=== PATIENT | female | born 1975 | race Caucasian/White ===

== ENCOUNTER 2017-02-20 09:00 | Outpatient (CLI) | payer BC | END 2017-02-20 09:02 | LOC: OUT 09:00 | PROVIDERS: ATTEND General Practice | DX: N94.5 Secondary dysmenorrhea (principal); N92.6 Irregular menstruation, unspecified; N94.10 Unspecified dyspareunia | CPT/HCPCS: 99203 ==

== ENCOUNTER 2017-03-20 08:35 | Outpatient (CLI) | payer BC | END 2017-03-20 09:00 | LOC: OUT 08:35 | PROVIDERS: ATTEND General Practice | DX: N93.8 Other specified abnormal uterine and vaginal bleeding (principal); N94.5 Secondary dysmenorrhea; N94.10 Unspecified dyspareunia | CPT/HCPCS: 99214 ==

== ENCOUNTER 2017-03-23 16:26 | Emergency (ER) | payer BC ==
[2017-03-23] MEDS ORDERED: ONDANSETRON HCL/PF 4 MG/ 2ML VIAL IVP ONE (16:50)
[2017-03-23] MEDS ORDERED: 0.9 % SODIUM CHLORIDE 1,000 ML IV ONE (16:50)
[2017-03-23] MEDS ORDERED: DIPHENOXYLATE HCL/ATROPINE 1 EACH TABLET PO ONE (16:50)
[2017-03-23 17:13] LABS: BASOPHILS % 0.6 (0.0-1.5); EOSINOPHILS % 2.7 % (0.0-6.8); MEAN CORPUSCULAR HEMOGLOBIN 35.7 pg (28.0-34.0); NEUTROPHILS # 2.8 # k/uL (1.4-7.7)
[2017-03-23 17:26] LABS: eGFR (African) > 60; eGFR (Non-African) > 60
[2017-03-23] MEDS ORDERED: POTASSIUM CHLORIDE 20 MEQ TABLET.ER PO ONE (17:50)
--- NOTE | 2017-03-23 18:06 | ED Physician Documentation ---
Nausea/Vomiting/Diarrhea - HISTORIAN Historian: patient - HPI Stated Complaint: N/V/D Chief Complaint: Nausea,Vomiting,Diarrhea Onset: hours Duration: sudden-onset Timing: sudden onset Context: denies: out of country travel, bad food, recent trauma Severity: moderate Further Comments: no - Associated Symptoms Vomiting: frequent Diarrhea: copious Abdominal Pain: cramping (minimal) - ROS CONST: none CVS/RESP: denies: chest pain, shortness of breath, cough, dry cough, non- productive cough, productive cough, bloody cough GI/: none EYES/ENT: none MS/SKIN/LYMPH: denies: joint pain, leg swelling, rash, swollen glands, ankle swelling NEURO/PSYCH: none - PAST HX Past History: none Other History: other (alcoholism) Surgeries/Procedures: none Immunizations: referred to PCP Allergies/Adverse Reactions: Allergies Allergy/AdvReac Type Severity Reaction Status Date / Time aspirin Allergy Verified 03/23/17 16:37 Home Medications: Ambulatory Orders Medication Instructions Recorded NK [NK] 03/23/17 - SOCIAL HX Smoking History: cigarettes Alcohol Use: heavy Drug Use: none - FAMILY HX Family History: none - VITAL SIGNS Vital Signs: Vital Signs Temp Pulse Resp BP Pulse Ox 98.1 F 92 H 18 136/85 98 03/23/17 16:26 03/23/17 18:51 03/23/17 18:51 03/23/17 18:51 03/23/17 18:51 - REVIEWED ASSESSMENTS Nursing Assessment Reviewed: Yes Vitals Reviewed: Yes Progress - Results/Orders Results/Orders: cbc, cmp, ua, etoh ordered - Progress Progress: pt. gien 1 liter NS, 8 mg Zofran ivp and Lomotil 1 p[.o. x 1 in ER Critical Care Note - Critical Care Note Total Time (mins): 0 ED Results Lab/Radiology - Lab Results Lab Results: Lab Results 03/23/17 03/23/17 17:10 17:10 WBC 3.90 K/ul L K/ul (4.00-12.00) RBC 3.79 M/ul L M/ul (3.90-5.20) Hgb 13.5 g/dL g/dL (12.0-16.0) Hct 38.3 % % (34.5-46.5) MCV 101.0 fl H fl (80.0-100.0) MCH 35.7 pg H pg (28.0-34.0) MCHC 35.3 g/dL g/dL (30.0-36.0) RDW 12.9 % % (11.3-14.3) Plt Count 133 K/mm3 K/mm3 (130-400) Neut % (Auto) 71.7 % % (39.0-79.0) Lymph % (Auto) 16.4 % % (16.0-50.0) Shannon % (Auto) 7.0 % % (0.0-11.0) Eos % (Auto) 2.7 % % (0.0-6.8) Baso % (Auto) 0.6 (0.0-1.5) Neut # (Auto) 2.8 # k/uL # k/uL (1.4-7.7) Lymph # (Auto) 0.6 # k/uL # k/uL (0.6-4.0) Shannon # (Auto) 0.3 # k/uL # k/uL (0.0-0.9) Eos # (Auto) 0.1 # k/uL # k/uL (0.0-0.6) Baso # (Auto) 0.0 # k/uL # k/uL (0.0-0.5) Reactive Lymphs % 1.5 % % (0.0-5.0) Reactive Lymphs # 0.1 # k/uL # k/uL (0.0-0.8) Sodium 137 mmol/L mmol/L (136-145) Potassium 3.3 mmol/L L mmol/L (3.5-5.1) Chloride 95 mmol/L L mmol/L (98-107) Carbon Dioxide 23 mmol/L mmol/L (22-30) BUN 5 mg/dL L mg/dL (7-17) Creatinine 0.40 mg/dL L mg/dL (0.52-1.04) Estimated Creat Clear 197 Est GFR ( Amer) > 60 (60 - ) Est GFR (Non-Af Amer) > 60 (60 - ) Glucose 95 mg/dL mg/dL (74-106) Calcium 9.2 mg/dL mg/dL (8.4-10.2) Total Bilirubin 1.2 mg/dL mg/dL (0.2-1.3) AST 222 U/L H U/L (15-46) ALT 119 U/L H U/L (13-69) Alkaline Phosphatase 73 U/L U/L (38-126) Total Protein 8.3 g/dL H g/dL (6.3-8.2) Albumin 4.9 g/dL g/dL (3.5-5.0) Ethyl Alcohol 20.6 mg/dL H mg/dL (0.0-10.0) - Radiology Radiology Impressions: none ordered - Orders Orders: ED Orders Category Date Time Status Place IV Lock 1T Care 03/23/17 16:50 Active ALCOHOL MEDICAL USE ONLY Routine Lab 03/23/17 17:10 Completed CBC/PLATELET/DIFF Routine Lab 03/23/17 17:10 Completed CMP Routine Lab 03/23/17 17:10 Completed URINALYSIS Routine Lab 03/23/17 16:52 Ordered 0.9 % Sodium Chloride [Normal Saline] 1,000 ml Med 03/23/17 16:50 Discontinued IV Q1H Diphenoxylate HCl/Atropine [Lomotil] Med 03/23/17 16:50 Discontinued 1 each PO NOW ONE Ondansetron HCl/Pf [Zofran 4 mg/2 ml] Med 03/23/17 16:50 Discontinued 8 mg IVP NOW ONE Potassium Chloride [Klor-Con M20] Med 03/23/17 17:50 Discontinued 40 meq PO NOW ONE Nausea Physical Exam - EXAM General Appearance: alert, mild distress EENT: eye inspection normal, ENT inspection normal, pharynx normal, no signs of dehydration, RAMSEY, no nystagmus, TM's nml Neck: normal inspection, thyroid normal, supple Respiratory: no resp distress, chest non-tender, breath sounds normal CVS: reg rate & rhythm, heart sounds normal, equal pulses, no murmur, no gallop , PMI nml Abdomen: non-tender, no organomegaly. No: tenderness, guarding, rebound Back: non-tender Skin: warm/dry, normal color Extremities: non-tender, normal range of motion, no evidence of injury, no edema Neuro/Psych: oriented X3, CN's nml as tested, motor nml, sensation nml, mood/ affect nml, cognition normal Discharge Clincal Impression: Gastroenteritis Referrals: Amanda Recinos, PRN [Primary Care Provider] - 2 Days Comments: Discharged in stable condition with scripts for Lomotil 1 p.o. qid prn diarrhea , Zofran 4 mg 1 p.o. qid prn n/v Condition: Stable Disposition: 01 HOME, SELF-CARE Decision to Admit: NO Decision Time: 17:55
[2017-03-23 18:56] VITALS: BP 136/85
[2017-03-24 06:17] LABS: APPEARANCE,URINE CLEAR (CLEAR); COLOR,URINE YELLOW (YELLOW); OCCULT BLOOD,URINE TRACE-INTACT (NEGATIVE); UROBILINOGEN URINE 0.2 Eu (0.2-1.0)
== END 2017-03-23 18:30 | disposition home or self-care (01) ==
LOC: ED 16:26
DX: K52.9 Noninfective gastroenteritis and colitis, unspecified (principal)
CPT/HCPCS: 80053; 80320; 81002; 85025; A9270; J2405; J7030; 96361; 96374; 99283; G0480; S1016

== ENCOUNTER 2017-04-10 08:04 | Outpatient (CLI) | payer BC ==
--- NOTE | 2017-04-10 09:45 | Diagnostic Imaging Report ---
MARLENY LUX [facility] [id number] [facility] [address] [place] [address]. [id number] Report Submission Date: Apr 10, 2017 9:32:32 AM ACCOUNT ADJUSTER Patient Study Name: ELINOR MUNIZ Date: Apr 10, 2017 8:22:56 AM ACCOUNT ADJUSTER Modality Type: US Gender: F Description: TRANSVAGINAL PELVIS : 73 Institution: [facility] Physician: MARLENY LUX Pelvic ultrasound History: IRREGULAR CYCLES, MENORRHAGIA, DYSMENORRHEA Grayscale and color Doppler images of the pelvis are submitted No prior comparison studies Lmp: 03/11/2017 The uterus is retroverted and measures 5.1 cm transverse x 7.5 x 4.6 cm, Endometrial stripe measures 5 mm, it is slightly distorted in its superior aspect by a large heterogeneous solid lesion which measures 2.4 x 1.8 x 2.1 centimeters. Endometrium distal to this lesion measures approximately 1 cm Several other hypoechoic lesions are seen in the inferior uterine body, for instance solid hypoechoic measures 1 x 1 x 1.1 cm. Another adjacent heterogeneous lesion measures 1.5 x 1.4 x 1.5 cm. Small amount of free fluid is present in the cul de sac. Right ovary is not seen secondary to bowel gas The left ovary measures 2 x 1.7 x 1.9 cm and demonstrates several follicular cysts, the largest of which measures 1 x 1.5 x 1 cm, this a slightly complex. Flow is demonstrated to the left ovary Impression: 1. Large indeterminate vascular heterogeneous lesion measuring 2.4 x 1.8 x 2.1 cm is seen in mid-superior uterus, in close proximity to the endometrial canal, endometrial stripe is distorted, it is unclear if this mass arises within the endometrial canal. Differential diagnoses includes malignancy versus submucosal uterine fibroid. 2. Heterogeneous lesions in the lower uterine segment are noted, likely fibroids 3. In view of the above findings pelvic MRI is recommended. 3. Right ovary not seen. Flow is demonstrated to the left ovary. Left ovarian follicles, some of which appear complex. Electronically signed on Apr 10, 2017 9:32:32 AM ACCOUNT ADJUSTER by: Genevieve MERINO
== END 2017-04-10 08:05 ==
LOC: RAD 08:04
PROVIDERS: ATTEND General Practice
DX: N92.0 Excessive and frequent menstruation with regular cycle (principal); N94.6 Dysmenorrhea, unspecified
CPT/HCPCS: 76830

== ENCOUNTER 2017-05-15 08:18 | Outpatient (CLI) | payer BC | END 2017-05-15 08:20 | LOC: OUT 08:18 | PROVIDERS: ATTEND General Practice ==

== ENCOUNTER 2017-05-15 08:41 | Outpatient (CLI) | payer BC ==
[2017-05-15 09:22] LABS: BASOPHILS % 0.8 (0.0-1.5); EOSINOPHILS % 7.4 % (0.0-6.8); MEAN CORPUSCULAR HEMOGLOBIN 35.7 pg (28.0-34.0); MEAN CORPUSCULAR VOLUME 100.9 fl (80.0-100.0); MONOCYTES % 7.3 % (0.0-11.0); NEUTROPHILS # 1.9 # k/uL (1.4-7.7)
[2017-05-15 09:38] LABS: eGFR (African) > 60; eGFR (Non-African) > 60
== END 2017-05-15 08:43 ==
LOC: LAB 08:41
PROVIDERS: ATTEND General Practice
DX: Z01.812 Encounter for preprocedural laboratory examination (principal); Z01.810 Encounter for preprocedural cardiovascular examination
CPT/HCPCS: 36415; 80053; 85025; 85610; 85730

== ENCOUNTER 2017-06-12 08:22 | Outpatient (CLI) | payer BC | END 2017-06-12 08:24 | LOC: OUT 08:22 | PROVIDERS: ATTEND General Practice | DX: N80.9 Endometriosis, unspecified (principal); Z48.89 Encounter for other specified surgical aftercare | CPT/HCPCS: 99213 ==

== ENCOUNTER 2017-06-15 21:39 | Emergency (ER) | payer BC ==
[2017-06-15 22:26] LABS: eGFR (African) > 60; eGFR (Non-African) > 60
[2017-06-15 22:27] LABS: BASOPHILS % 0.7 (0.0-1.5); EOSINOPHILS % 1.8 % (0.0-6.8); MEAN CORPUSCULAR HEMOGLOBIN 34.4 pg (28.0-34.0); MEAN CORPUSCULAR VOLUME 98.5 fl (80.0-100.0); MONOCYTES % 3.2 % (0.0-11.0); NEUTROPHILS # 3.3 # k/uL (1.4-7.7)
[2017-06-15] MEDS: 0.9 % SODIUM CHLORIDE 1,000 ML IV ONE (23:07)
--- NOTE | 2017-06-15 23:55 | ED Physician Documentation ---
Female Urogenital Problems - HISTORIAN Historian: patient - HPI Stated Complaint: vaginal bleeding Chief Complaint: Female Urogenital Problems Additional Information: vaginal hysterectomy 3 weeks ago. Kota had sudden onset of significant vaginal bleeding and clots. No pain Onset: hours (2) Time of Arrival to the ED: 21:40 Context: s/p hysterectomy Severity: moderate Location of Pain: other (no pain) Further Comments: no - Vaginal Bleeding Abnormal Bleeding Started: 06/15/17 Compared to Menstrual Periods: heavier, passing clots - Associated Symptoms Urinary Symptoms: none Discharge: denies: vaginal discharge, vaginal fluid leakage, odorous discharge, yellowish discharge - ROS CONST: no problems GI/: denies: nausea, vomiting, decreased appetite, diarrhea, black stools, bloody stools CVS/RESP: none EYES/ENT: none NEURO/PSYCH: none MS/SKIN/LYMPH: none - PAST HX Past History: endometriosis Surgeries/Procedures: hysterectomy Immunizations: referred to PCP Allergies/Adverse Reactions: Allergies Allergy/AdvReac Type Severity Reaction Status Date / Time azithromycin Allergy Hives Verified 06/15/17 23:25 [From Zithromax Z-Anant] aspirin AdvReac Nausea/Vomi Verified 06/15/17 22:12 ting lorazepam [From Ativan] AdvReac Hallucinati Verified 06/15/17 23:25 ons Home Medications: Ambulatory Orders Medication Instructions Recorded NK [NK] 03/23/17 - SOCIAL HX Smoking History: cigarettes Alcohol Use: none Drug Use: none - FAMILY HX Family History: other (bleeding disorders) - VITAL SIGNS Vital Signs: Vital Signs Temp Pulse Resp BP Pulse Ox 98.1 F 98 H 16 127/90 100 06/15/17 21:39 06/15/17 21:39 06/15/17 21:39 06/15/17 21:39 06/15/17 21:39 - REVIEWED ASSESSMENTS Nursing Assessment Reviewed: Yes Vitals Reviewed: Yes Progress - Results/Orders Results/Orders: CBC, bmp, pt/ptt/inr ordered - Progress Progress: Pt. given 1 liter NS, all clots and bleeding evacuated from vaginal vault. Pt. seems to be oozing from one place at vaginal cuff. Tampon placed with soaking within 20 minutes. Critical Care Note - Critical Care Note Total Time (mins): 30 ED Results Lab/Radiology - Lab Results Lab Results: Lab Results 06/15/17 06/15/17 06/15/17 22:13 22:13 22:13 WBC 5.20 K/ul K/ul (4.00-12.00) RBC 3.44 M/ul L M/ul (3.90-5.20) Hgb 11.8 g/dL L g/dL (12.0-16.0) Hct 33.9 % L % (34.5-46.5) MCV 98.5 fl fl (80.0-100.0) MCH 34.4 pg H pg (28.0-34.0) MCHC 34.9 g/dL g/dL (30.0-36.0) RDW 12.5 % % (11.3-14.3) Plt Count 281 K/mm3 K/mm3 (130-400) Neut % (Auto) 62.1 % % (39.0-79.0) Lymph % (Auto) 30.0 % % (16.0-50.0) Mathews % (Auto) 3.2 % % (0.0-11.0) Eos % (Auto) 1.8 % % (0.0-6.8) Baso % (Auto) 0.7 (0.0-1.5) Neut # (Auto) 3.3 # k/uL # k/uL (1.4-7.7) Lymph # (Auto) 1.6 # k/uL # k/uL (0.6-4.0) Mathews # (Auto) 0.2 # k/uL # k/uL (0.0-0.9) Eos # (Auto) 0.1 # k/uL # k/uL (0.0-0.6) Baso # (Auto) 0.0 # k/uL # k/uL (0.0-0.5) Reactive Lymphs % 2.2 % % (0.0-5.0) Reactive Lymphs # 0.1 # k/uL # k/uL (0.0-0.8) PT 10.3 Seconds Seconds (9.4-11.6) INR 0.98 (0.9-1.2) APTT 27.2 Seconds Seconds (24.5-32.8) Sodium 140 mmol/L mmol/L (136-145) Potassium 3.7 mmol/L mmol/L (3.5-5.1) Chloride 100 mmol/L mmol/L (98-107) Carbon Dioxide 24 mmol/L mmol/L (22-30) BUN 6 mg/dL L mg/dL (7-17) Creatinine 0.50 mg/dL L mg/dL (0.52-1.04) Estimated Creat Clear 160 Est GFR ( Amer) > 60 (60 - ) Est GFR (Non-Af Amer) > 60 (60 - ) Glucose 115 mg/dL H mg/dL (74-106) Calcium 9.0 mg/dL mg/dL (8.4-10.2) - Radiology Radiology Impressions: none taken - Orders Orders: ED Orders Category Date Time Status Place IV Lock 1T Care 06/15/17 22:07 Active BMP Routine Lab 06/15/17 22:13 Completed CBC/PLATELET/DIFF Routine Lab 06/15/17 22:13 Completed PT-INR Routine Lab 06/15/17 22:13 Completed PTT Routine Lab 06/15/17 22:13 Completed 0.9 % Sodium Chloride [Normal Saline] 1,000 ml Med 06/15/17 22:07 Discontinued IV Q1H Female Urogenital Problems - EXAM General Appearance: alert, mild distress (anxious over bleeding) EENT: eye inspection normal, ENT inspection normal, pharynx normal, no signs of dehydration, RAMSEY, no nystagmus, TM's nml Neck: nml inspection Respiratory: no resp. distress, breath sounds nml CVS: reg rate & rhythm, heart sounds normal, equal pulses, no murmur, no gallop , PMI nml, no JVD Abdomen: soft, non-tender, no organomegaly, no distention, nml bowel sounds Pelvic: external exam nml, active bleeding, moderate, blood in vaginal vault, blood clots in vault Back: non-tender Skin: color nml, no rash, warm,dry Extremities: non-tender, normal range of motion, no evidence of injury, no edema Neuro: oriented X3, CN's nml as tested, motor nml, sensation nml, mood/affect nml, cognition normal Discharge Clincal Impression: Postoperative vaginal bleeding Referrals: Amanda Recinos, PRN [Primary Care Provider] - 2 Days Comments: Case discussed with her surgeon Dr. Rae who recommends transfer to [facility] in [place], [place] for admission, observation and transexamic acid therapy. Pt. transferred by private vehicle in stable condition. Condition: Stable Disposition: 01 HOME, SELF-CARE Decision to Admit: NO Decision Time: 00:02
[2017-06-16 00:29] VITALS: BP 131/90
== END 2017-06-16 00:10 | disposition home or self-care (01) ==
LOC: ED 21:39
DX: N93.8 Other specified abnormal uterine and vaginal bleeding (principal); Z90.710 Acquired absence of both cervix and uterus
CPT/HCPCS: 80048; 85025; 85610; 85730; J7030; 96365; 99283; 99284; S1016

== ENCOUNTER 2017-06-16 01:13 | Emergency (ER) | payer BC ==
[2017-06-16 03:32] VITALS: BP 117/77
== END 2017-06-16 02:25 | disposition home or self-care (01) ==
LOC: ED 01:13
DX: Z53.9 Procedure and treatment not carried out, unspecified reason (principal)

== ENCOUNTER 2017-07-10 08:59 | Outpatient (CLI) | payer BC | END 2017-07-10 10:00 | LOC: OUT 08:59 | PROVIDERS: ATTEND General Practice | DX: Z48.89 Encounter for other specified surgical aftercare (principal); E28.39 Other primary ovarian failure | CPT/HCPCS: 99213 ==

== ENCOUNTER 2017-08-07 08:51 | Outpatient (CLI) | payer BC | END 2017-08-07 08:52 | LOC: OUT 08:51 | PROVIDERS: ATTEND General Practice | DX: Z48.89 Encounter for other specified surgical aftercare (principal) | CPT/HCPCS: 99213 ==